=== PATIENT | male | born 1990 | race African-American/Black ===

== ENCOUNTER 2018-11-30 18:00 | Emergency (ER) | payer OTHER ==
--- NOTE | 2018-11-30 19:42 | RAD REPORT ---
EXAM DESCRIPTION: RAD - Hand Right 3 View - 11/30/2018 7:30 pm CLINICAL HISTORY: injury Trauma, pain COMPARISON: No comparisons FINDINGS: Cortical irregularity is seen in the region of the second metacarpal neck, suspicious for fracture. Mild soft tissue swelling is present the dorsum of the hand.
--- NOTE | 2018-11-30 20:29 | EDPHYS ---
Physician Documentation [facility] Name: Jas Greenberg Jr Age: 28 yrs Sex: Male : 1990 Arrival Date: 11/30/2018 Time: 18:01 Bed 28 Private MD: ED Physician Brendan Lynn HPI: 11/30 18:28 This 28 yrs old Black Male presents to ER via Ambulatory with complaints of Hand Injury.jmm 18:28 The patient or guardian reports injury, pain. Onset: The symptoms/episode jmm began/occurred acutely, today. Modifying factors: The symptoms are alleviated by nothing, the symptoms are aggravated by nothing. Associated signs and symptoms:. This is a 28 year old male with no chronic medical conditions that presents to the ED with complaints of right hand pain after a speaker box fell on his hand. Denies other injury.. Historical: - Allergies: 18:13 PENICILLINS; mg2 - Home Meds: 18:06 None [Active]; hj - PMHx: 18:06 None; hj - PSHx: 18:06 hand surgery; hj - Immunization history:: Adult Immunizations up to date. - Social history:: Smoking status: Patient uses tobacco products, Patient uses alcohol. - Ebola Screening: : Patient negative for fever greater than or equal to 101.5 degrees Fahrenheit, and additional compatible Ebola Virus Disease symptoms Patient denies exposure to infectious person Patient denies travel to an Ebola-affected area in the 21 days before illness onset. ROS: 18:28 Constitutional: Negative for fever, chills, and weight loss, Cardiovascular: Negative jmm for chest pain, palpitations, and edema, Respiratory: Negative for shortness of breath, cough, wheezing, and pleuritic chest pain. 18:28 MS/extremity: Positive for pain, rash. 18:28 All other systems are negative. Exam: 18:28 Constitutional: This is a well developed, well nourished patient who is awake, alert, jmm and in no acute distress. Head/Face: atraumatic. Eyes: EOMI, no conjunctival erythema appreciated ENT: Moist Mucus Membranes Neck: Trachea midline, Supple Chest/axilla: Normal chest wall appearance and motion. Cardiovascular: Regular rate and rhythm. No edema appreciated Respiratory: Normal respirations, no respiratory distress appreciated Abdomen/GI: Non distended, soft Back: Normal ROM Skin: General appearance color normal 18:28 Musculoskeletal/extremity: ROM: intact in all extremities, swelling noted to the right hand, mild tenderness on palpation of the right 2nd and 3rd metacarpals, compartments are soft, NVI, < 2 sec dist cap refill. 18:28 Skin: Appearance: Color: normal in color. 18:28 Neuro: Orientation: is normal, Mentation: is normal, Memory: is normal. 18:28 Psych: Behavior/mood is pleasant, cooperative. Vital Signs: 18:07 BP 143 / 87; Pulse 87; Resp 18; Temp 99.1(O); Pulse Ox 100% on R/A; Weight 79.38 kg; hj Height 5 ft. 9 in. (175.26 cm); Pain 10/10; 20:35 BP 130 / 78; Pulse 80; Resp 18; Pulse Ox 100% on R/A; Pain 0/10; mg2 18:07 Body Mass Index 25.84 (79.38 kg, 175.26 cm) Procedures: 20:24 Splinting: Splint applied to right hand using volar. applied by tech. Examined by me, rebecca post splint application: neurovascular intact, 2+ distal pulses palpable, brisk capillary refill noted, Patient tolerated well. MDM: 18:28 Patient medically screened. rebecca 20:24 Data reviewed: vital signs, nurses notes. Counseling: I had a detailed discussion with rebecca the patient and/or guardian regarding: the historical points, exam findings, and any diagnostic results supporting the discharge/admit diagnosis, radiology results, the need for outpatient follow up, to return to the emergency department if symptoms worsen or persist or if there are any questions or concerns that arise at home. 20:24 ED course: Patient is advised to follow up with hand for further evaluation. patient rebecca given compartment syndrome return precautions. . 11/30 18:31 Order name: Hand Right 3 View XRAY; Complete Time: 19:50 rebecca 11/30 19:53 Order name: Volar Wrist Splint; Complete Time: 20:23 rebecca Administered Medications: 20:27 Drug: Motrin 400 mg Route: PO; mg2 20:35 Follow up: Response: No adverse reaction; Medication administered at discharge. mg2 Disposition: 12/01 17:51 Co-signature as Attending Physician, Brendan Lynn MD. Disposition: 11/30/18 20:28 Discharged to Home. Impression: Nondisplaced fracture of neck of second metacarpal bone, right hand. - Condition is Stable. - Discharge Instructions: Metacarpal Fracture. - Prescriptions for Ultracet 37.5- 325 mg Oral Tablet - take 1 tablet by ORAL route every 6 hours - for up to 5 days; do not exceed 8 tablets per day.; 20 tablet. - Medication Reconciliation Form, Thank You Letter, Antibiotic Education, Prescription Opioid Use, Work release form form. - Follow up: Kushal Quijano MD; When: 2 - 3 days; Reason: Recheck today's complaints, Continuance of care, Re-evaluation by your physician. Signatures: Dispatcher [employer] EDMS Stanley Suresh PA PA jmm Joaquin, Henry, RN RN Brendan Lynn MD MD gs Gardose, Michele, RN RN mg2 Corrections: (The following items were deleted from the chart) 11/30 18:13 18:06 Allergies: No Known Allergies; mg2 20:36 20:28 11/30/2018 20:28 Discharged to Home. Impression: Nondisplaced fracture of neck of mg2 second metacarpal bone, right hand. Condition is Stable. Forms are Work release form, Medication Reconciliation Form, Thank You Letter, Antibiotic Education, Prescription Opioid Use. Follow up: Kushal Quijano; When: 2 - 3 days; Reason: Recheck today's complaints, Continuance of care, Re-evaluation by your physician. rebecca
--- NOTE | 2018-11-30 20:29 | ER ---
Nurse's Notes [facility] Name: Jas Greenberg Jr Age: 28 yrs Sex: Male : 1990 Arrival Date: 11/30/2018 Time: 18:01 Bed 28 Private MD: Diagnosis: Nondisplaced fracture of neck of second metacarpal bone, right hand Presentation: 11/30 18:03 Presenting complaint: Patient states: i dropped a speaker on my R hand, happened early hj today; reports numbness, tingling and pain; pain is 10/10;. Transition of care: patient was not received from another setting of care. Onset of symptoms was November 30, 2018. Risk Assessment: Do you want to hurt yourself or someone else? Patient reports no desire to harm self or others. Initial Sepsis Screen: Does the patient meet any 2 criteria? No. Patient's initial sepsis screen is negative. Does the patient have a suspected source of infection? No. Patient's initial sepsis screen is negative. Care prior to arrival: None. 18:03 Method Of Arrival: Ambulatory 18:03 Acuity: SIMI 4 hj Triage Assessment: 18:06 General: Appears in no apparent distress. uncomfortable, Behavior is calm, cooperative, hj appropriate for age. Pain: Complains of pain in right hand. Historical: - Allergies: 18:13 PENICILLINS; mg2 - Home Meds: 18:06 None [Active]; hj - PMHx: 18:06 None; hj - PSHx: 18:06 hand surgery; hj - Immunization history:: Adult Immunizations up to date. - Social history:: Smoking status: Patient uses tobacco products, Patient uses alcohol. - Ebola Screening: : Patient negative for fever greater than or equal to 101.5 degrees Fahrenheit, and additional compatible Ebola Virus Disease symptoms Patient denies exposure to infectious person Patient denies travel to an Ebola-affected area in the 21 days before illness onset. Screenin:06 Abuse screen: Denies threats or abuse. Denies injuries from another. Nutritional hj screening: No deficits noted. Tuberculosis screening: No symptoms or risk factors identified. Fall Risk None identified. Assessment: 18:18 General: Appears in no apparent distress. comfortable, Behavior is calm, cooperative. mg2 Pain: Complains of pain in right hand Pain does not radiate. Pain currently is 5 out of 10 on a pain scale. Quality of pain is described as aching, Pain began suddenly, this morning Is intermittent. Neuro: Level of Consciousness is awake, alert, obeys commands, Oriented to person, place, time, situation. Cardiovascular: Capillary refill < 3 seconds Patient's skin is warm and dry. Respiratory: Airway is patent Respiratory effort is even, unlabored, Respiratory pattern is regular, symmetrical. GI: No signs and/or symptoms were reported involving the gastrointestinal system. : No signs and/or symptoms were reported regarding the genitourinary system. EENT: No signs and/or symptoms were reported regarding the EENT system. Derm: Skin is intact, is healthy with good turgor, Skin is pink, warm \T\ dry. normal. Musculoskeletal: Circulation, motion, and sensation intact. Capillary refill < 3 seconds, Swelling present in right hand. Injury Description: swelling. 20:35 Reassessment: Patient appears in no apparent distress at this time. mg2 Vital Signs: 18:07 BP 143 / 87; Pulse 87; Resp 18; Temp 99.1(O); Pulse Ox 100% on R/A; Weight 79.38 kg; hj Height 5 ft. 9 in. (175.26 cm); Pain 10/10; 20:35 BP 130 / 78; Pulse 80; Resp 18; Pulse Ox 100% on R/A; Pain 0/10; mg2 18:07 Body Mass Index 25.84 (79.38 kg, 175.26 cm) ED Course: 18:01 Patient arrived in ED. ds1 18:06 Triage completed. hj 18:07 Arm band placed on left wrist. hj 18:07 Patient has correct armband on for positive identification. Bed in low position. Call light in reach. Side rails up X 1. Adult w/ patient. 18:08 Stanley Suresh PA is PHCP. [facility] 18:08 Brendan Lynn MD is Attending Physician. [facility] 18:11 Tyler Nguyen, RODRÍGUEZ is Primary Nurse. mg2 18:21 No provider procedures requiring assistance completed. Patient did not have IV access mg2 during this emergency room visit. 19:31 Hand Right 3 View XRAY In Process Unspecified. EDMS 20:23 Selwyn wrap to right wrist Orthoglass splint: Volar splint applied on right arm. jp3 20:27 Kushal Quijano MD is Referral Physician. [facility] Administered Medications: 20:27 Drug: Motrin 400 mg Route: PO; mg2 20:35 Follow up: Response: No adverse reaction; Medication administered at discharge. mg2 Outcome: 20:28 Discharge ordered by . jennifer 20:36 Discharged to home ambulatory. mg2 20:36 Condition: stable 20:36 Discharge instructions given to patient, friend, Instructed on discharge instructions, follow up and referral plans. medication usage, Demonstrated understanding of instructions, follow-up care, medications, splint care, Prescriptions given X 1. 20:36 Patient left the ED. mg2 Signatures: Dispatcher [employer] EDMS Stanley Suresh PA PA [facility] Richelle Doe ds1 Bright Rushing, RN RN Tyler Barrera RN RN mg2 Jonny Hernandez jp3 Corrections: (The following items were deleted from the chart) 18:09 18:07 Pulse 87bpm; Resp 18bpm; Pulse Ox 100% RA; Temp 99.1F Oral; 79.38 kg; Height 5 hj ft. 9 in.; BMI: 25.8; Pain 10/10; hj 18:13 18:06 Allergies: No Known Allergies; mg2
[2018-11-30] MEDS ORDERED: IBUPROFEN 400 MG TAB ONE (20:37)
== END 2018-11-30 20:36 | disposition home or self-care (01) ==
LOC: ER 18:00
PROC: 2W3CX1Z Immobilization of Right Lower Arm using Splint (ICD-10-PCS; principal; 2018-11-30)
DX: S62.360A Nondisplaced fracture of neck of second metacarpal bone, right hand, initial encounter for closed fracture (principal); W20.8XXA Other cause of strike by thrown, projected or falling object, initial encounter; Z88.0 Allergy status to penicillin; Z72.0 Tobacco use
CPT/HCPCS: 99284

== ENCOUNTER 2018-12-25 18:45 | Emergency (ER) | payer OTHER ==
[2018-12-25] MEDS ORDERED: CEFTRIAXONE 250 MG/VIAL ONE (20:21)
[2018-12-25] MEDS ORDERED: WATER FOR INJ,STERILE 10 ML ONE (20:21)
[2018-12-25] MEDS ORDERED: AZITHROMYCIN 250 MG TAB ONE (20:21)
--- NOTE | 2018-12-25 21:09 | ER ---
Nurse's Notes [facility] Name: Jas Greenberg Jr Age: 28 yrs Sex: Male : 1990 Arrival Date: 12/25/2018 Time: 18:48 Bed 10 Private MD: Diagnosis: Dysuria;Unspecified sexually transmitted disease Presentation: 12/25 19:16 Presenting complaint: Patient states: "I went to use the bathroom and it burned and sg it's still burning when I pee, but I don't have no discharge coming out" Denies fever. Transition of care: patient was not received from another setting of care. Onset of symptoms was December 25, 2018. Risk Assessment: Do you want to hurt yourself or someone else? Patient reports no desire to harm self or others. Initial Sepsis Screen: Does the patient meet any 2 criteria? HR > 90 bpm. No. Patient's initial sepsis screen is negative. Does the patient have a suspected source of infection? Yes: Dysuria/Frequency/Urgency/UTI. Care prior to arrival: None. 19:16 Method Of Arrival: Ambulatory sg 19:16 Acuity: SIMI 4 sg Triage Assessment: 19:17 General: Appears in no apparent distress. comfortable, Behavior is calm, cooperative, sg appropriate for age. Pain: Complains of pain in pelvis Pain currently is 0 out of 10 on a pain scale. Neuro: Level of Consciousness is awake, alert, obeys commands. Cardiovascular: Patient's skin is warm and dry. Respiratory: Airway is patent Respiratory effort is even, unlabored, Respiratory pattern is regular, symmetrical. : Reports burning with urination. Historical: - Allergies: 19:17 PENICILLINS; sg - Home Meds: 19:17 None [Active]; sg - PMHx: 19:17 None; sg - PSHx: 19:17 None; sg - Immunization history:: Flu vaccine is up to date. - Social history:: Smoking status: Patient uses tobacco products, denies chronic smoking, but will smoke occasionally. - Ebola Screening: : Patient denies travel to an Ebola-affected area in the 21 days before illness onset. Screenin:00 Abuse screen: Denies threats or abuse. Nutritional screening: No deficits noted. jb4 Tuberculosis screening: No symptoms or risk factors identified. Fall Risk None identified. Assessment: 20:00 General: Appears in no apparent distress. comfortable, Behavior is calm, cooperative, jb4 appropriate for age. Pain: Denies pain. Neuro: Level of Consciousness is awake, alert, obeys commands, Oriented to person, place, time, situation. Cardiovascular: Patient's skin is warm and dry. Respiratory: Airway is patent Respiratory effort is even, unlabored, Respiratory pattern is regular, symmetrical. GI: No signs and/or symptoms were reported involving the gastrointestinal system. : Reports burning with urination, discharge, from penis that is white, pain with urination. EENT: No signs and/or symptoms were reported regarding the EENT system. Derm: Skin is intact, Skin is dry, Skin is normal, Skin temperature is warm. Musculoskeletal: Circulation, motion, and sensation intact. 21:00 Reassessment: Patient appears in no apparent distress at this time. Patient and/or jb4 family updated on plan of care and expected duration. Pain level reassessed. Patient is alert, oriented x 3, equal unlabored respirations, skin warm/dry/pink. Vital Signs: 19:17 BP 120 / 75; Pulse 91; Resp 18; Temp 97.5; Pulse Ox 98% on R/A; Weight 79.38 kg; Height sg 6 ft. 0 in. (182.88 cm) (R); Pain 0/10; 21:00 BP 113 / 58; Pulse 81; Resp 16; Pulse Ox 97% on R/A; jb4 19:17 Body Mass Index 23.73 (79.38 kg, 182.88 cm) ED Course: 18:48 Patient arrived in ED. as 19:17 Triage completed. sg 19:17 Arm band placed on Patient placed in waiting room, Patient notified of wait time. sg 19:44 Lizette De La Rosa FNP-C [facility] kb 19:44 Brendan Lynn MD is Attending Physician. kb 19:51 Dixon Umanzor, RODRÍGUEZ is Primary Nurse. jb4 20:00 Patient has correct armband on for positive identification. Bed in low position. Call jb4 light in reach. Side rails up X 1. Pulse ox on. NIBP on. 21:18 No provider procedures requiring assistance completed. Patient did not have IV access jb4 during this emergency room visit. Administered Medications: 20:06 Drug: Zithromax 1 grams Route: PO; jb4 21:00 Follow up: Response: No adverse reaction jb4 20:10 Drug: Rocephin (cefTRIAXone) 250 mg Route: IM; Site: right gluteus; jb4 21:00 Follow up: Response: No adverse reaction jb4 Outcome: 21:08 Discharge ordered by . clotilde 21:18 Discharged to home ambulatory. jb4 21:18 Condition: stable 21:18 Discharge instructions given to patient, Instructed on discharge instructions, follow up and referral plans. medication usage, safe sex practices, Demonstrated understanding of instructions, follow-up care, medications, Prescriptions given X 1. 21:19 Patient left the ED. jb4 Signatures: Lizette De La Rosa, DATA ENTRY REPRESENTATIVE-C CARLOS-Lino Olivia, RN RN Calli Reid James, RN RN jb4
--- NOTE | 2018-12-25 21:09 | EDPHYS ---
Physician Documentation [facility] Name: Jas Greenberg Jr Age: 28 yrs Sex: Male : 1990 Arrival Date: 12/25/2018 Time: 18:48 Bed 10 Private MD: ED Physician Brendan Lynn HPI: 12/25 20:05 This 28 yrs old Black Male presents to ER via Ambulatory with complaints of Pain With kb Urination. 20:05 The patient presents with a possible STD exposure, symptoms include dysuria, white kb discharge, urinary symptoms, dysuria. Onset: The symptoms/episode began/occurred this morning. Modifying factors: The symptoms are alleviated by nothing, the symptoms are aggravated by urinating. Associated signs and symptoms: Pertinent positives: dysuria, Pertinent negatives: abdominal pain, constipation, diarrhea, fever, hematuria, nausea, vomiting. Severity of symptoms: At their worst the symptoms were moderate, in the emergency department the symptoms are unchanged. The patient has experienced a previous episode. The patient has not recently seen a physician. Pt reports dysuria and white penile discharge that started this morning. Attests to having unprotected sex.. Historical: - Allergies: 19:17 PENICILLINS; sg - Home Meds: 19:17 None [Active]; sg - PMHx: 19:17 None; sg - PSHx: 19:17 None; sg - Immunization history:: Flu vaccine is up to date. - Social history:: Smoking status: Patient uses tobacco products, denies chronic smoking, but will smoke occasionally. - Ebola Screening: : Patient denies travel to an Ebola-affected area in the 21 days before illness onset. ROS: 20:05 Constitutional: Negative for fever, chills, and weight loss, Cardiovascular: Negative kb for chest pain, palpitations, and edema, Respiratory: Negative for shortness of breath, cough, wheezing, and pleuritic chest pain, Abdomen/GI: Negative for abdominal pain, nausea, vomiting, diarrhea, and constipation, Back: Negative for injury and pain, MS/Extremity: Negative for injury and deformity, Skin: Negative for injury, rash, and discoloration, Neuro: Negative for headache, weakness, numbness, tingling, and seizure. 20:05 : Positive for urinary symptoms, burning with urination. Exam: 20:05 Constitutional: This is a well developed, well nourished patient who is awake, alert, kb and in no acute distress. Head/Face: Normocephalic, atraumatic. Neck: Trachea midline, no thyromegaly or masses palpated, and no cervical lymphadenopathy. Supple, full range of motion without nuchal rigidity, or vertebral point tenderness. No Meningismus. Chest/axilla: Normal chest wall appearance and motion. Nontender with no deformity. No lesions are appreciated. Cardiovascular: Regular rate and rhythm with a normal S1 and S2. No gallops, murmurs, or rubs. Normal PMI, no JVD. No pulse deficits. Respiratory: Lungs have equal breath sounds bilaterally, clear to auscultation and percussion. No rales, rhonchi or wheezes noted. No increased work of breathing, no retractions or nasal flaring. Abdomen/GI: Soft, non-tender, with normal bowel sounds. No distension or tympany. No guarding or rebound. No evidence of tenderness throughout. Skin: Warm, dry with normal turgor. Normal color with no rashes, no lesions, and no evidence of cellulitis. MS/ Extremity: Pulses equal, no cyanosis. Neurovascular intact. Full, normal range of motion. Neuro: Awake and alert, GCS 15, oriented to person, place, time, and situation. Cranial nerves II-XII grossly intact. Motor strength 5/5 in all extremities. Sensory grossly intact. Cerebellar exam normal. Normal gait. Vital Signs: 19:17 BP 120 / 75; Pulse 91; Resp 18; Temp 97.5; Pulse Ox 98% on R/A; Weight 79.38 kg; Height sg 6 ft. 0 in. (182.88 cm) (R); Pain 0/10; 21:00 BP 113 / 58; Pulse 81; Resp 16; Pulse Ox 97% on R/A; jb4 19:17 Body Mass Index 23.73 (79.38 kg, 182.88 cm) sg MDM: 19:46 Patient medically screened. kb 20:04 Data reviewed: vital signs, nurses notes. Data interpreted: Pulse oximetry: on room air kb is 98 %. Interpretation: normal. Counseling: I had a detailed discussion with the patient and/or guardian regarding: the historical points, exam findings, and any diagnostic results supporting the discharge/admit diagnosis, lab results, the need for outpatient follow up, a family practitioner, to return to the emergency department if symptoms worsen or persist or if there are any questions or concerns that arise at home. 12/25 19:25 Order name: Urine Microscopic Only kb 12/25 21:05 Order name: Urine Dipstick--Ancillary (enter results) mw2 12/25 19:25 Order name: Urine Dipstick-Ancillary (obtain specimen); Complete Time: 21:02 kb Administered Medications: 20:06 Drug: Zithromax 1 grams Route: PO; jb4 21:00 Follow up: Response: No adverse reaction jb4 20:10 Drug: Rocephin (cefTRIAXone) 250 mg Route: IM; Site: right gluteus; jb4 21:00 Follow up: Response: No adverse reaction jb4 Disposition: 23:19 Co-signature as Attending Physician, Brendan Lynn MD. Disposition: 12/25/18 21:08 Discharged to Home. Impression: Dysuria, Unspecified sexually transmitted disease. - Condition is Stable. - Discharge Instructions: Dysuria, Sexually Transmitted Disease, [id number]. - Prescriptions for Doxycycline Hyclate 100 mg Oral Tablet - take 1 tablet by ORAL route every 12 hours for 7 days; 14 tablet. - Medication Reconciliation Form, Thank You Letter, Antibiotic Education, Prescription Opioid Use form. - Follow up: Emergency Department; When: As needed; Reason: Worsening of condition. Follow up: Private Physician; When: 2 - 3 days; Reason: Recheck today's complaints, Continuance of care, Re-evaluation by your physician. Signatures: Dispatcher [employer] [facility] Lizette De La Rosa, CARLOS-C RECRUITMENT MANAGER-Lino Olivia RN RN sg Bryson, James, RN RN jb4 Starr, Gregory, MD MD gs Corrections: (The following items were deleted from the chart) 21:19 21:08 12/25/2018 21:08 Discharged to Home. Impression: Dysuria; Unspecified sexually jb4 transmitted disease. Condition is Stable. Discharge Instructions: Sexually Transmitted Disease, [id number]. Prescriptions for Doxycycline Hyclate 100 mg Oral Tablet - take 1 tablet by ORAL route every 12 hours for 7 days; 14 tablet. and Forms are Medication Reconciliation Form, Thank You Letter, Antibiotic Education, Prescription Opioid Use. Follow up: Emergency Department; When: As needed; Reason: Worsening of condition. Follow up: Private Physician; When: 2 - 3 days; Reason: Recheck today's complaints, Continuance of care, Re-evaluation by your physician. kb
[2018-12-25 21:31] LABS: Urine Bacteria <20 /HPF (NONE SEEN); Urine Culture Reflex Order REFLEXED
[2018-12-25 21:49] LABS: Urine Blood TRACE (NEG); Urine Glucose NEGATIVE (NEG); Urine Protein TRACE (NEG); Urine Specific Gravity 1.025 (1.005-1.030); Urine pH 6.5 (5.0-7.0)
== END 2018-12-25 21:19 | disposition home or self-care (01) ==
LOC: ER 18:45
DX: A64 Unspecified sexually transmitted disease (principal); Z88.0 Allergy status to penicillin
CPT/HCPCS: 81003; 81015; 87086; 87088; 96372; 99283; J0696

== ENCOUNTER 2019-01-26 04:50 | Emergency (ER) | payer OTHER ==
[2019-01-26] MEDS ORDERED: HYDROMORPHONE HCL 1 MG/ML INJ ONE ×2 (05:21→06:18)
[2019-01-26] MEDS ORDERED: ONDANSETRON 4 MG/2 ML VIAL ONE ×2 (05:21→06:41)
[2019-01-26 05:24] LABS: Absolute Lymphocytes (CBC) 2.3 K/uL (0.7-4.9); Absolute Monocytes 1.2 K/uL (0.1-1.3); Absolute Neutrophil 17.1 K/uL (1.8-8.0); Basophils % 0.2 % (0-1.3); Eosinophils % 0.1 % (0-4.4); Hematocrit 43.2 % (39.6-49.0); Lymphocytes % 10.9 % (15.3-44.8); MPV 8.6 fL (7.6-11.3); Monocytes % 5.7 % (3.3-12.3); RBC Red Blood Cell Count 5.11 M/uL (4.33-5.43)
[2019-01-26 05:32] LABS: BUN Blood Urea Nitrogen 12 mg/dL (7-18); Bicarbonate 25 mmol/L (21-32); Glucose Level 93 mg/dL (74-106); Potassium 3.9 mmol/L (3.5-5.1); Sodium Level 137 mmol/L (136-145)
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
[2019-01-26] MEDS ORDERED: CLINDAMYCIN 600MG/D5W 600 MG/50 ML BAG IV ONE (06:15)
[2019-01-26] MEDS ORDERED: MEPERIDINE HCL 50 MG/ML AMP ONE (06:41)
[2019-01-26 06:52] LABS: Blood Morphology Comment NOT SEEN (NOT SEEN); Platelet Estimate ADEQ
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
== END 2019-01-26 07:29 | disposition short-term general hospital (02) ==
LOC: ER 04:50
DX: S02.652A Fracture of angle of left mandible, initial encounter for closed fracture (principal); S02.66XA Fracture of symphysis of mandible, initial encounter for closed fracture; W50.0XXA Accidental hit or strike by another person, initial encounter; Y93.9 Activity, unspecified; Y92.89 Other specified places as the place of occurrence of the external cause; Z88.0 Allergy status to penicillin
CPT/HCPCS: 36415; 70450; 70486; 70498; 76377; 80048; 85025; 96365; 96375; 99285; J1170; J2175; J2405; Q9967